=== PATIENT | female | born 1960 | race Caucasian/White ===

== ENCOUNTER 2023-09-29 13:12 | Emergency (ER) | payer BC, SELFPAY ==
[2023-09-29 13:14] VITALS: BP 150/100
--- NOTE | 2023-09-29 15:58 | ED.GENMED ---
History of Present Illness
General
Chief Complaint: Musculo-Skeletal Complaint
Source: patient
Exam Limitations: none
Time Seen by Provider: 09/29/23 13:36
Nursing documentation reviewed up to this point in time: agreed with
Travel History
Have you had any contact with someone who has COVID-19?: No
Do you have any symptoms of coronavirus? Fever > 100 degrees, chills, cough, shortness of breath, sore throat, loss of taste or smell, muscle aches, or headache?: No
History of Present Illness
History of Present Illness:
63-year-old female with past medical history of torn labrum in the right hip and chronic pains in the right hip who presents to the emergency room for evaluation of right hip pain. 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 She says that she
was doing her usual paperwork work which includes sitting and standing from her desk; she says that while she was standing she walked over the sink and began to have acute onset of severe right hip pain. She says that she felt like her right leg
was numb/tingling. She says that this pain has occurred before but never to this degree of intensity. She took 2 Motrin and she came to the emergency room for assessment. She was given a warm blanket on arrival to place on her hip and about 15
minutes after arrival here she began noticing relief and by the time of my assessment she says her severe pain has subsided. She denies any falls or trauma. She denies any numbness or weakness at present in her leg. She denies any back pain. She
denies other complaints. She sees Dr. Ravi for her right hip issues. Of note she is on Prolia for osteoporosis.
Past History
Past History
ED Past Medical History: Asthma
ED Past Surgical History: Orthopedic (Wrist surgery)
Social History
Tobacco: Non-smoker
Alcohol: Occasional
Drug: None
Personal:
Living: with family
Review of Systems
Review of Systems
All Other Systems: ROS reviewed and negative except as documented in HPI and ROS
Constitutional: Denies fever
Musculoskeletal: Reports joint pain (Right hip pain)
Phy Exam
Physical Exam
Physical Exam:
General: Well appearing and non-toxic
HEENT: protecting airway
Neck: appears supple
CV: No evidence of cyanosis
Resp: No accessory muscle use
Abd: Non-distended
Extremities: No deformities of the lower extremities; she has reproducible tenderness of the lateral right hip but no erythema, warmth, fluctuance, crepitus; she has full active range of motion of the right hip with only mild pain; she has no right
knee pain on range of motion, no right knee joint effusion; she has no edema in the right lower extremity; she has a good strong PT and DP pulse in the right lower extremity; her distal extremity is warm and well-perfused with no change in color;
she has intact motor and sensory function throughout the entire right lower leg
Neuro: Alert
Psych: Normal affect
Skin: Intact
Scores
Heart Failure Risk
Heart Failure Risk Score: Not Applicable
Heart Score for Chest Pain Patients
STEMI patient?: Not applicable
Withdrawal Assessment of Alcohol
Withdrawal Assessment Completed?: Not applicable
Course
Orders/Labs/Results
Orders:
Orders
09/29/23 13:59
CR Hip - RT w/wo Pel 2-3 Vw* Urgent
Comment:
Reason For Exam: right hip pain
Include a pelvis x-ray?: Yes
Vital Signs
Initial and Last Documented VS:
Initial Vital Signs
Temp Pulse Resp BP Pulse Ox
36.7 C 88 16 150/100 98
09/29/23 13:14 09/29/23 13:14 09/29/23 13:14 09/29/23 13:14 09/29/23 13:14
Last Documented Vital Signs
Temp Pulse Resp BP Pulse Ox
36.7 C 88 16 150/100 98
09/29/23 13:14 09/29/23 13:14 09/29/23 13:14 09/29/23 13:14 09/29/23 13:14
MDM/Problems Addressed
Differential Diagnosis Includes:
Muscle spasm, sciatica, fracture, dislocation
MDM/Problems Addressed:
63-year-old female presents to the emergency room for evaluation of sudden onset right hip pain that she has a torn labrum on the right hip and has had occasional pains on chronic basis today's pain was much more intense. It seems dose aside with
Motrin and heat. Lasted for about 30 minutes. Neurovascularly intact in the right lower extremity. Exam as above. She is on Prolia, high risk for femur fractures with minimal to no trauma. Will check an x-ray of the hip to rule this diagnosis
out although by history this sounds like it may have been more of a muscle spasm. Will continue to monitor for recurrence. Reassess after the above.
X-ray of the hip shows no acute fracture. Patient remains well-appearing, no recurrence of her severe pain. Stable for discharge. She will follow-up with Dr. Ravi as an outpatient. Provided a prescription for low-dose muscle relaxer as needed
for recurrence and she will continue to take Motrin as needed.
*Radiology
Radiology exam reviewed: preliminary read by ED provider and radiology read reviewed
*Pulse Oximetry
Patient hypoxic: no
*Critical Care Note
Total Time (30-74mins, 75-104mins- exclusive of procedures): Not Applicable
Data Reviewed
Source: patient and spouse
ED Attending Note
-
Portions of this chart may have been created with voice recognition software.� Occasional wrong word or��sound alike� substitutions may have occurred due to the inherent limitations of voice recognition software.
Discharge Plan
Departure
Patient Disposition: Home (Routine Discharge)
Date of Disposition: 09/29/23
Time of Disposition: 14:55
Patient with high blood pressure during this ER visit?: Yes
Discharge Problem:
Hip pain, right
Instructions: Muscle Spasm ED
Prescriptions:
New
cyclobenzaprine 5 mg tablet
5 mg PO TID PRN (Reason: muscle spasm) Qty: 14 0RF
Referrals:
Karyn Ribeiro MD [Family Provider] -
Jaron Ravi MD [Active] - Keep scheduled appt
Activity Restrictions/Additional Instructions:
Thank you for visiting the Emergency Department at [facility].
1. Please schedule a follow up appointment as directed. Call first thing tomorrow morning to make an appointment.
2. If indicated, please take your medications as instructed and indicated on discharge paperwork.
3. If any of your symptoms do not improve, or persist, or become more severe within 6-12 hours, please return to the emergency department for further care.
4. Please return to the emergency department if you develop a headache, neck pain/stiffness, fever greater than 100.4F, chest pain, shortness of breath, persistent nausea, vomiting, slurred speech, difficulty walking, numbness/tingling, weakness,
signs of infection or any other symptoms that are worrisome to you.
Please call [phone] if you have any questions.
Interventions
Interventions:
*Risk Screen - Suicide Last Done: 09/29/23 13:30
*Neglect/Abuse Screening Last Done: 09/29/23 13:30
*ED COVID-19 Vaccine History Last Done: 09/29/23 13:22
*Nursing Disposition Last Done: 09/29/23 15:03
ED-Musculoskeletal Assessment Last Done: 09/29/23 13:30
Discharge Date and Time
Discharge Date/Time: 09/29/23 15:04
Print Language: NIGERIEN
== END 2023-09-29 15:04 | disposition home or self-care (01) ==
LOC: EMR 13:12
PROVIDERS: EMERGENCY PHYSICIAN Emergency Medicine; FAMILY PHYSICIAN Family Medicine
DX: M25.551 Pain in right hip (principal); M81.0 Age-related osteoporosis without current pathological fracture; J45.909 Unspecified asthma, uncomplicated
CPT/HCPCS: 99283; 73502

== ENCOUNTER → 2024-08-12 11:46 | Outpatient (REF) | payer BC, SELFPAY | LOC: DHSLP 11:46 | PROVIDERS: ATTENDING PHYSICIAN Internal Medicine Critical Care Medicine; FAMILY PHYSICIAN Internal Medicine | DX: G47.33 Obstructive sleep apnea (adult) (pediatric) (principal); R09.02 Hypoxemia | CPT/HCPCS: 95800 ==

== ENCOUNTER → 2024-09-01 11:32 | Outpatient (REF) | payer SELFPAY | LOC: RAD 11:32 | PROVIDERS: ATTENDING PHYSICIAN Family Medicine | DX: E78.00 Pure hypercholesterolemia, unspecified (principal) | CPT/HCPCS: 75571 ==

== ENCOUNTER → 2024-09-01 11:36 | Outpatient (REF) | payer BC, SELFPAY | LOC: RAD 11:36 | PROVIDERS: ATTENDING PHYSICIAN Family Medicine | DX: M81.0 Age-related osteoporosis without current pathological fracture (principal) | CPT/HCPCS: 77080 ==

== ENCOUNTER → 2024-11-25 10:41 | Outpatient (REF) | payer BC, SELFPAY ==
[2024-11-25 12:02] LABS: ALT (SGPT) 11 U/L (0-35); AST (SGOT) 29 U/L (14-36); Albumin 4.8 g/dl (3.5-5.0); Alkaline Phosphatase 64 U/L (38-126); Blood Urea Nitrogen 23 mg/dl (7-17); Calcium 9.7 mg/dl (8.4-10.2); Carbon Dioxide 30 mmol/L (22-30); Chloride 104 mmol/L (98-107); Glucose 97 mg/dl (70-99); Potassium 4.6 mmol/L (3.5-5.1); Sodium 139 mmol/L (135-145); Total Protein 7.2 g/dl (6.3-8.2); eGFR > 60.00
== END ==
LOC: REG 10:41
PROVIDERS: ATTENDING PHYSICIAN Internal Medicine; FAMILY PHYSICIAN Family Medicine
DX: M81.0 Age-related osteoporosis without current pathological fracture (principal)
CPT/HCPCS: 36415; 80053

== ENCOUNTER 2024-12-22 15:11 | Outpatient (RCR) | payer BC, SELFPAY ==
[2024-12-22 15:33] VITALS: BP 140/83
[2024-12-22] MEDS: PROLIA 60 MG SC (15:55)
== END 2024-12-23 08:03 | disposition home or self-care (01) ==
LOC: OID 15:11
PROVIDERS: ATTENDING PHYSICIAN Family Medicine; FAMILY PHYSICIAN Internal Medicine
DX: M81.0 Age-related osteoporosis without current pathological fracture (principal)
CPT/HCPCS: 96372; J0897

== ENCOUNTER 2025-04-27 06:21 | Day surgery (SDC) | payer BC, SELFPAY | END 2025-04-27 14:07 | disposition home or self-care (01) | LOC: GI 06:21 | PROVIDERS: ATTENDING PHYSICIAN Internal Medicine Gastroenterology | DX: Z12.11 Encounter for screening for malignant neoplasm of colon (principal); K63.5 Polyp of colon; K57.30 Diverticulosis of large intestine without perforation or abscess without bleeding; K64.8 Other hemorrhoids; Z86.0100 Personal history of colon polyps, unspecified; Z83.719 Family history of colon polyps, unspecified | CPT/HCPCS: 45380; 88305 ==

== ENCOUNTER → 2025-05-17 09:45 | Outpatient (REF) | payer BC, SELFPAY ==
[2025-05-17 12:01] LABS: Hematocrit 42.9 % (37.0-47.0); Hemoglobin 14.5 g/dL (12.0-16.0); Mean Corp Hgb Conc. 33.8 g/dL (33.0-37.0); Mean Corpuscular Volume 93.3 fL (81.0-99.0); Nucleated Red Blood Cells % 0 %; Platelet Count 185 10^3/uL (130-400); Red Cell Dist. Width 12.1 % (11.5-14.5)
[2025-05-17 12:15] LABS: ALT (SGPT) 10 U/L (0-35); AST (SGOT) 26 U/L (14-36); Albumin 4.5 g/dl (3.5-5.0); Alkaline Phosphatase 61 U/L (38-126); Blood Urea Nitrogen 19 mg/dl (7-17); Calcium 9.2 mg/dl (8.4-10.2); Carbon Dioxide 28 mmol/L (22-30); Chloride 103 mmol/L (98-107); Glucose 88 mg/dl (70-99); HDL Cholesterol 100 mg/dl; LDL Cholesterol, Calculated 111 mg/dl; Potassium 4.2 mmol/L (3.5-5.1); Sodium 137 mmol/L (135-145); Total Protein 7.1 g/dl (6.3-8.2); Very Low Density Lipoprotein 14 mg/dl (0-30); eGFR > 60.00
== END ==
LOC: HWLAB 09:45
PROVIDERS: ATTENDING PHYSICIAN Family Medicine
DX: Z00.00 Encounter for general adult medical examination without abnormal findings (principal)
CPT/HCPCS: 36415; 80053; 80061; 84443; 85025